=== PATIENT | male | born 1975 | race Caucasian/White ===

== ENCOUNTER 2016-12-29 18:17 | Emergency (ER) | payer OTHER ==
[~2016-12-29] VITALS: Ht 185.4 cm; Wt 88.5 kg
[~2016-12-29 18:17] MED LIST: SEROQUEL100 MG PO
[2016-12-29 18:29] VITALS: BP 119/74
--- NOTE | 2016-12-29 19:48 | NUR ---
Patient ambulatd to bed 01.
--- NOTE | 2016-12-29 19:55 | NUR ---
41 Y/O M W/C/O L ABD PAIN, NVD X 1 DAY. PT STATES HAS A HX OF PANCREATITIS. NO S/S OF DISTRESS AT THIS TIME, ER AWARED.
--- NOTE | 2016-12-29 20:32 | NUR ---
Dr. Platt evaluating patient at bedside.
[2016-12-29] MEDS ORDERED: NACL 0.9% 1,000 ML IV ONE (20:36)
[2016-12-29] MEDS ORDERED: MORPHINE SULFATE 4 MG/ML SYR IVP ONE (20:40)
[2016-12-29] MEDS ORDERED: ONDANSETRON 4 MG/2 ML VIAL IVP ONE (20:40)
[2016-12-29] MEDS ORDERED: FAMOTIDINE 20 MG/2 ML VIAL IVP ONE (20:40)
[2016-12-29 22:50] VITALS: BP 103/69
--- NOTE | 2016-12-29 22:50 | NUR ---
Patient discharged BY ER MD with v/s stable. Written and verbal after care instructions given and explained. Patient verbalized understanding. Ambulatory with steady gait. All questions addressed prior to discharge. Advised to follow up with PMD.
--- NOTE | 2016-12-31 14:30 | NUR ---
PT SIGNIFICANT OTHER, ZUHAIR SCHULTE, CALLED AND SPOKE TO SURFACE HYDROLOGIST TO INQUIRE REGARDING PT'S QUICK DISCHARGE ON 12/29/16. MS. SCHULTE STATES PT HAS HX OF PANCREATITIS AND SHE BROUGHT HIM IN SUNDAY EVENING FOR EVALUATION OF NAUSEA AND VOMITING, AND AFTER GETTING HIM CHECKED IN TO THE ER, SHE LEFT TO GRAB A CUP OF COFFEE, AND PUT GAS IN HER CAR, AND BY THE TIME SHE RETURNED, PT WAS ALREADY DISCHARGED AND SHE FEELS PT WASN'T THOROUGHLY EVALUATED. RECEIVING TEAM MEMBER HAWK NOTIFIED AND WILL FOLLOW UP W/Óscar ERIS.
== END 2016-12-29 22:50 | disposition home or self-care (01) ==
LOC: MED 18:17
DX: F41.9 Anxiety disorder, unspecified (principal); R10.13 Epigastric pain; R11.2 Nausea with vomiting, unspecified; F32.9 Major depressive disorder, single episode, unspecified
CPT/HCPCS: 36415; 80053; 80061; 82150; 83690; 85025; 96361; 96374; 96375; 99284; J2270; J2405; J3490; J7030

== ENCOUNTER 2022-10-26 12:34 | Emergency (ER) | payer OTHER ==
[~2022-10-26] VITALS: Ht 185.4 cm; Wt 88.5 kg
[~2022-10-26 12:34] MED LIST changes: +QUET100T PO; -SEROQUEL100 MG PO
[2022-10-26 12:35] VITALS: BP 112/71
--- NOTE | 2022-10-26 12:58 | NUR ---
BIB FAMILY C/O EPIGASTRIC PAIN, N/V/D X TODAY.PMH: PANCREATITIS, DEPRESSION. ABD SOFT, NO TENDERNES. SKIN IS PINK/WARM/DRY; AAOX4 WITH EVEN AND STEADY GAIT; LUNGS CLEAR BL; HR EVEN AND REGULAR; PT DENIES ANY FEVER, CP, SOB, OR COUGH AT THIS TIME; PATIENT STATES PAIN OF 6/10 AT THIS TIME.
--- NOTE | 2022-10-26 13:31 | NUR ---
Patient ambulated to bed 2.
--- NOTE | 2022-10-26 13:37 | NUR ---
Lab at bedside.
[2022-10-26] MEDS ORDERED: DICYCLOMINE HCL LIQUID 20 MG, ALUMINUM HYD/MAG/SIMETHICONE 30 ML, LIDOCAINE VISCOUS 2% ... PO ONE ×3 (13:40)
[2022-10-26] MEDS ORDERED: DICYCLOMINE HCL LIQUID 10 MG/5 ML UDC ONE (13:48)
[2022-10-26] MEDS ORDERED: ALUMINUM HYD/MAG/SIMETHICONE 30 ML UDC ONE (13:48)
[2022-10-26 13:53] LABS: BASOPHILS % (AUTO) 0.2 % (0.0-2.0); EOSINOPHILS # (AUTO) 0.1 K/uL (0-0.4); EOSINOPHILS % (AUTO) 0.9 % (0.0-4.0); HEMATOCRIT 47.3 % (36-52); HEMOGLOBIN 15.5 g/dL (12.0-18.0); LYMPHOCYTES # (AUTO) 0.6 K/uL (2.0-11.5); LYMPHOCYTES % (AUTO) 3.6 % (20.5-51.1); MEAN CORPUSCULAR HEMOGLOBIN 29 pg (27-31); MEAN CORPUSCULAR HGB CONC 33 g/dL (33-37); MEAN CORPUSCULAR VOLUME 88.7 fL (80-94); MONOCYTES # (AUTO) 0.7 K/uL (0.8-1.0); MONOCYTES % (AUTO) 4.5 % (1.7-9.3); NEUTROPHILS # (AUTO) 15.1 K/uL (1.8-7.7); NEUTROPHILS % (AUTO) 90.8 % (42.2-75.2); PLATELET COUNT (AUTO) 339 K/uL (140-450); RED BLOOD CELL COUNT(AUTO) 5.33 MIL/uL (4.20-6.10); RED CELL DISTRIBUTION WIDTH 13.9 % (11.6-13.7); WHITE BLOOD COUNT (AUTO) 16.6 K/uL (4.8-10.8)
[2022-10-26 14:19] LABS: ALBUMIN 3.9 g/dL (3.4-5.0); ANION GAP 11.3 (8-16); CARBON DIOXIDE 29.2 mmol/L (21-32); CREATININE 1.2 mg/dL (0.6-1.3); POTASSIUM 4.5 mmol/L (3.5-5.1); TOTAL BILIRUBIN 0.4 mg/dL (0.0-1.0)
--- NOTE | 2022-10-26 14:19 | NUR ---
Dr. Milner evaluating patient at bedside.
[2022-10-26 14:54] LABS: APPEARANCE,URINE CLEAR (CLEAR); BILIRUBIN,URINE NEGATIVE (NEGATIVE); BLOOD, URINE 2+ (NEGATIVE); COLOR,URINE YELLOW (YELLOW); LEUKOCYTE ESTERASE ,URINE NEGATIVE (NEGATIVE); NITRITE, URINE NEGATIVE (NEGATIVE); PH,URINE 5.5 (5.0-9.0); UGLUCOSE NEGATIVE (NEGATIVE)
[2022-10-26] MEDS ORDERED: ONDA-188 PO (15:25)
[2022-10-26] MEDS ORDERED: FAMO-90 PO (15:25)
[2022-10-26] MEDS ORDERED: MAG355OR2 PO (15:25)
[2022-10-26 15:43] VITALS: BP 108/52
--- NOTE | 2022-10-26 15:43 | NUR ---
Patient discharged with v/s stable. Written and verbal after care instructions given. Patient alert, oriented and verbalized understanding of instructions. Ambulatory with steady gait. All questions addressed prior to discharge. ID band removed. Patient advised to follow up with PMD. Rx of Pepcid, Zofran and Maalox Maximum Strength Susp given. Opportunity to ask questions provided and answered. WORK NOTE HANDED TO PATIENT.
[2022-10-26 15:44] LABS: RBC,URINE 0-5 /HPF (0-5); WBC,URINE 0-5 /HPF (0-5)
[2022-10-26 15:45] LABS: CALCIUM OXALATE CRYSTALS,UR 50-70 /HPF (None Seen)
== END 2022-10-26 15:43 | disposition home or self-care (01) ==
LOC: MED 12:34
DX: R10.13 Epigastric pain (principal); R11.2 Nausea with vomiting, unspecified; K29.70 Gastritis, unspecified, without bleeding; F10.10 Alcohol abuse, uncomplicated; F17.210 Nicotine dependence, cigarettes, uncomplicated; F12.90 Cannabis use, unspecified, uncomplicated; Z71.6 Tobacco abuse counseling; Z79.899 Other long term (current) drug therapy
CPT/HCPCS: 36415; 80053; 81001; 83690; 84484; 85025; 93005; 99284